=== PATIENT | male | born 1985 | race Caucasian/White ===

== ENCOUNTER 2017-07-14 08:21 | Day surgery (SDC) | payer BC ==
[2017-07-10 15:38] VITALS: BMI 30.9
[2017-07-14] MEDS ORDERED: Propofol 10 mg/ml Inj (20 ML) ONE (09:54)
[2017-07-14] MEDS ORDERED: Sodium Chloride 0.9% 1,000 ML IV SCH (10:00)
[2017-07-14 10:52] VITALS: PULSE 67
[2017-07-14 15:16] VITALS: BP 112/72; RESP 18; TEMP 98.1; O2SAT 99
== END 2017-07-14 15:15 | disposition home or self-care (01) ==
LOC: ENDO 08:21
PROVIDERS: ATTEND Internal Medicine Gastroenterology
DX: K21.0 Gastro-esophageal reflux disease with esophagitis (principal); K29.50 Unspecified chronic gastritis without bleeding; B96.81 Helicobacter pylori [H. pylori] as the cause of diseases classified elsewhere; E66.9 Obesity, unspecified; Z68.32 Body mass index [BMI] 32.0-32.9, adult
CPT/HCPCS: 43239; 88305; 88312; 88342; J2704; J7040 ×2